=== PATIENT | male | born 1950 ===

== ENCOUNTER 2018-07-14 12:10 | Outpatient (REF) | payer MEDICARE, SELFPAY ==
--- NOTE | 2018-07-14 10:40 | SKI_PTH ---
PATIENT: EM AUSTIN JR LOC: [facility] U#:[id number] AGE/SX: 67/M ROOM: RE07/14/[address]: Jennifer Thomas : 1950 BED: DIS: 07/14/2018 SPEC #: [id number] RECD: 07/17/18 12:32 STATUS: FRED RECarlito #: [id number] ERIN: 07/14/18 10:[address]: Jennifer Thomas DEPT: Surgical Specimen RECD BY: Chantel Pantoja Tissues: 1 - SKIN BIOPSY(SHAVE/PUNCH) Procedures: SKIN LEVEL 4 Comments: [id number]
== END 2018-07-14 12:30 ==
LOC: NCHCN 12:10
PROVIDERS: PCP Family Medicine; Visit Provider Family Medicine
DX: L57.0 Actinic keratosis (principal)
CPT/HCPCS: 88305

== ENCOUNTER 2019-01-10 09:02 | Outpatient (REF) | payer MEDICARE, OTHER, SELFPAY ==
[2019-01-10 21:43] LABS: Glucose 119 mg/dL (70-100)
== END 2019-01-10 09:22 ==
LOC: NCHCN 09:02
PROVIDERS: PCP Family Medicine; Visit Provider Family Medicine
DX: R63.6 Underweight (principal); R63.4 Abnormal weight loss
CPT/HCPCS: 82947

== ENCOUNTER 2019-03-27 10:19 | Outpatient (REF) | payer OTHER, SELFPAY ==
[2019-03-27 21:18] LABS: Abs Immature Grans 0.07 k/cumm (0.0-0.09); Absolute Basophil Count 0.06 k/cumm (0.0-0.2); Absolute Eosinophil Count 0.23 k/cumm (0.0-0.7); Absolute Lymphocyte Count 0.68 k/cumm (1.2-3.4); Absolute Monocyte Count 1.24 k/cumm (0.11-0.7); Absolute Neutrophil Count 12.13 k/cumm (1.2-6.7); Basophils % 0.4; Eosinophils % 1.6; HCT 42.4 % (40.0-50.0); HGB 14.6 g/dL (13.5-17.5); Immature Grans % 0.5 %; Lymphocytes % 4.7; Mean Corp. HGB Concentration 34.4 g/dL (32.0-36.0); Mean Corpuscular Hemoglobin 35.9 pg (27.0-33.0); Mean Corpuscular Volume 104.2 fL (80-95); Mean Platelet Volume 11.4 fL (8.0-11.0); Monocytes % 8.6; Neutrophils % 84.2; Platelet Count 249 x1000/uL (130-400); RBC 4.07 m/cumm (4.50-6.00); RBC Distribution Width 12.6 % (11.8-14.1); White Blood Cell Count 14.41 k/cumm (4.4-10.8)
[2019-03-27 22:04] LABS: ESR 13 mm/hr (1-20)
== END 2019-03-27 10:39 ==
LOC: NCHCN 10:19
PROVIDERS: PCP Family Medicine; Visit Provider Family Medicine
DX: G45.3 Amaurosis fugax (principal)
CPT/HCPCS: 85652; 85025